=== PATIENT | female | born 1950 | race Caucasian/White ===

== ENCOUNTER 2019-11-25 09:41 | Emergency (ER) | payer MEDICARE, MEDICAID ==
[~2019-11-25] VITALS: Ht 162.6 cm; Wt 106.8 kg
[~2019-11-25 09:41] MED LIST: CLOT15CR73 TOP; GABA-532 PO; LEVO137T2 PO; NICO-631 TD; PRIM250T32 PO
[2019-11-25 09:42] VITALS: BP 105/68
[2019-11-25] MEDS ORDERED: HYDROcodone/acetaminophen 5mg/325mg tablet PO ONE (09:50)
[2019-11-25] MEDS ORDERED: TRAM50TA2 PO (10:40)
== END 2019-11-25 10:33 | disposition home or self-care (01) ==
LOC: ER 09:41
DX: M25.562 Pain in left knee (principal); Z90.710 Acquired absence of both cervix and uterus; Z98.890 Other specified postprocedural states; Z88.0 Allergy status to penicillin; Z88.8 Allergy status to other drugs, medicaments and biological substances; Z79.899 Other long term (current) drug therapy
CPT/HCPCS: 29505; 73564; 99284